=== PATIENT | female | born 1995 | race Hispanic/Latino ===

== ENCOUNTER 2024-07-28 17:48 | Emergency (ER) | payer OTHER, SELFPAY ==
--- NOTE | 2024-07-28 19:09 | RAD REPORT ---
EXAM: Transvaginal OB HISTORY: Abd cramping, ;Vaginal bleeding COMPARISON: None TECHNIQUE: Multiple grayscale and color Doppler images were obtained in a transvaginal pelvic ultraso und. Spectral analysis of the Doppler waveforms of the ovaries were performed. FINDINGS: UTERUS: No IUP identified. Endometrial echo complex measures 13 mm. No free fluid is seen in the pelvis. RIGHT OVARY: Normal flow without focal mass. LEFT OVARY: Normal flow without focal mass. IMPRESSION: No IUP identified. Per the clinical history, the patient had a recent ultrasound with enrique pected gestational sac. This could represent failed first trimester . Correlate with beta hCG.
[2024-07-28 19:11] LABS: Specific Gravity 1.029 (1.005-1.030); Sqamous Epithelial <5 /HPF (None Seen); Urine Bacteria None Seen /HPF (<20); Urine Bilirubin NEGATIVE (Negative); Urine Blood 3+ (OVER) (Negative); Urine Clarity Extremely Turbid (Clear); Urine Color Light-Orange (Yellow); Urine Culture Reflex Order NOT NEEDED; Urine Glucose 4+ (Over) (Negative); Urine Ketones TRACE (Negative); Urine Microscopic Reflex YN ORDER UMIC; Urine Nitrite NEGATIVE (Negative); Urine Protein TRACE (Negative); Urine RBC >50 /HPF (None Seen); Urine Urobilinogen Normal (Normal); Urine WBC None Seen /HPF (<5); Urine pH 5.5 (5.0-7.0)
[2024-07-28 19:20] LABS: Absolute Eosinophils 0.1 K/uL (0-0.5); Absolute Monocytes 0.5 K/uL (0.1-1.3); Basophils % 0.5 % (0-1.3); Eosinophils % 0.9 % (0-4.4); Hematocrit 41.2 % (36.0-45.0); Hemoglobin 13.7 g/dL (12.0-15.0); Lymphocytes % 34.9 % (15.3-44.8); MCH 29.2 pg (27.0-35.0); MCHC 33.3 g/dL (32.0-36.0); MCV 87.8 fL (80-100); MPV 7.9 fL (7.6-11.3); Monocytes % 6.1 % (3.3-12.3); Neutrophils % 57.6 % (41.7-73.7); Platelets 262 thou/uL (152-406); RBC Red Blood Cell Count 4.69 M/uL (3.86-4.86); Red Cell Distribution Width 14.2 % (12.1-15.2)
[2024-07-28 19:52] LABS: Anion Gap 9.7 mEq/L (5.0-15.0); Potassium 3.7 mEq/L (3.5-5.1)
--- NOTE | 2024-07-28 20:13 | EDPHYS ---
Physician Documentation [facility] Name: Kalia Patel Age: 28 yrs Sex: Female : 1995 Arrival Date: 07/28/2024 Time: 17:48 Bed 7 Private MD: TAMY Physician Saul Hall HPI: 07/28 18:53 This 28 yrs old Female presents to ER via Ambulatory with complaints of eliza Vaginal Bleeding, + Preg <12wks. 18:53 The patient presents to the emergency department with vaginal bleeding, that is light, eliza that is moderate. The estimated gestational age is 10 weeks. course: care: at a clinic. Previous pregnancies: in previous pregnancies patient has had vaginal delivery. Associated signs and symptoms: The patient has no apparent associated signs or symptoms. The patient has not experienced similar symptoms in the past. 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 - Infectious Disease History:: Denies. - Social history:: Smoking status: Patient denies any tobacco usage or history of. ROS: 18:54 Constitutional: Negative for fever, chills, and weight loss, Eyes: Negative for injury, eliza pain, redness, and discharge, ENT: Negative for injury, pain, and discharge, Neck: Negative for injury, pain, and swelling, Cardiovascular: Negative for chest pain, palpitations, and edema, Respiratory: Negative for shortness of breath, cough, wheezing, and pleuritic chest pain, Abdomen/GI: Negative for abdominal pain, nausea, vomiting, diarrhea, and constipation, Back: Negative for injury and pain, MS/Extremity: Negative for injury and deformity, Skin: Negative for injury, rash, and discoloration, Neuro: Negative for headache, weakness, numbness, tingling, and seizure, Psych: Negative for depression, anxiety, suicide ideation, homicidal ideation, and hallucinations, Allergy/Immunology: Negative for hives, rash, and allergies, Endocrine: Negative for neck swelling, polydipsia, polyuria, polyphagia, and marked weight changes, Hematologic/Lymphatic: Negative for swollen nodes, abnormal bleeding, and unusual bruising, 18:54 : Positive for vaginal bleeding, Exam: 18:54 Constitutional: This is a well developed, well nourished patient who is awake, alert, eliza and in no acute distress. Head/Face: Normocephalic, atraumatic. Eyes: Pupils equal round and reactive to light, extra-ocular motions intact. Lids and lashes normal. Conjunctiva and sclera are non-icteric and not injected. Cornea within normal limits. Periorbital areas with no swelling, redness, or edema. ENT: Nares patent. No nasal discharge, no septal abnormalities noted. Tympanic membranes are normal and external auditory canals are clear. Oropharynx with no redness, swelling, or masses, exudates, or evidence of obstruction, uvula midline. Mucous membranes moist. Neck: Trachea midline, no thyromegaly or masses palpated, and no cervical lymphadenopathy. Supple, full range of motion without nuchal rigidity, or vertebral point tenderness. No Meningismus. Chest/axilla: Normal chest wall appearance and motion. Nontender with no deformity. No lesions are appreciated. Cardiovascular: Regular rate and rhythm with a normal S1 and S2. No gallops, murmurs, or rubs. Normal PMI, no JVD. No pulse deficits. Respiratory: Lungs have equal breath sounds bilaterally, clear to auscultation and percussion. No rales, rhonchi or wheezes noted. No increased work of breathing, no retractions or nasal flaring. Abdomen/GI: Soft, non-tender, with normal bowel sounds. No distension or tympany. No guarding or rebound. No evidence of tenderness throughout. Back: No spinal tenderness. No costovertebral tenderness. Full range of motion. Skin: Warm, dry with normal turgor. Normal color with no rashes, no lesions, and no evidence of cellulitis. MS/ Extremity: Pulses equal, no cyanosis. Neurovascular intact. Full, normal range of motion., bilateral aka Neuro: Awake and alert, GCS 15, oriented to person, place, time, and situation. Cranial nerves II-XII grossly intact. Motor strength 5/5 in all extremities. Sensory grossly intact. Cerebellar exam normal. Normal gait. Psych: Awake, alert, with orientation to person, place and time. Behavior, mood, and affect are within normal limits. Vital Signs: 17:57 BP 142 / 106; Pulse 90; Resp 16; Temp 98.3; Pulse Ox 100% on R/A; hb 19:30 BP 145 / 87; Pulse 87; Resp 16; Pulse Ox 99% on R/A; dd2 20:30 BP 137 / 84; Pulse 84; Resp 16; Pulse Ox 100% on R/A; dd2 21:10 BP 136 / 85; Pulse 84; Resp 16; Temp 98.3; Pulse Ox 100% ; dd2 [place] Coma Score: 19:35 Eye Response: spontaneous(4). Motor Response: obeys commands(6). Verbal Response: dd2 oriented(5). Total: 15. MDM: 17:55 Medical Screening Exam initiated eliza 18:55 Differential diagnosis: ectopic , menometrorrhagia, menorrhea, threatened Ab, eliza inevitable Ab, complete Ab, retained Ab, septic Ab, missed Ab, Data reviewed: vital signs, nurses notes, lab test result(s), radiologic studies, ultrasound. Consideration of Admission/Observation Escalation of care including admission/observation considered. I considered the following discharge prescriptions or medication management in the emergency department Medications were administered in the Emergency Department. See MAR. Independent interpretation of the following test(s) in the Emergency Department Radiology Department Ultrasound: My interpretation is NO IUP. Test considered but Not performed: X-ray: NO X RAYS. Historians other than the Patient: Spouse/Significant Other: SIGNIFICANT OTHER. Care significantly affected by the following chronic conditions: Diabetes, Obesity, PCOS, DM 2. Counseling: I had a detailed discussion with the patient and/or guardian regarding the historical points, exam findings, and any diagnostic results supporting the discharge/admit diagnosis, lab results, radiology results, the need for outpatient follow up, for definitive care, an OB/Gyne specialist. 20:10 ED course: Vital signs stable. Patient reports vaginal bleeding has slowed down and she cp pulls up report on her phone showing that she had an ultrasound done 2 days ago that showed an IUP. Today's ultrasound is negative for IUP and according to patient the beta-hCG level is lower today than it was 2 days ago. Will discharge to home for continued monitoring patient can follow-up with her primary OB. 07/28 17:55 Order name: Abo/rh Typing; Complete Time: 20:01 [facility] 07/28 20:01 Interpretation: Reviewed. cp 07/28 17:55 Order name: Basic Metabolic Panel; Complete Time: 20:01 [facility] 07/28 20:01 Interpretation: Normal except: NA 135; GLUC 266. cp 07/28 17:55 Order name: CBC with Diff; Complete Time: 20:01 [facility] 07/28 20:01 Interpretation: Reviewed. cp 07/28 17:55 Order name: Test, Urine; Complete Time: 19:15 [facility] 07/28 20:02 Interpretation: Reviewed. cp 07/28 17:55 Order name: Quantitative Hcg; Complete Time: 20:01 [facility] 07/28 20:01 Interpretation: Reviewed. cp 07/28 17:55 Order name: Urinalysis w/ reflexes; Complete Time: 19:15 [facility] 07/28 20:02 Interpretation: Normal except: [facility] Extremely Turbid; UGLUC 4+ (Over); UKET TRACE; UBLD cp 3+ (OVER); UPROT TRACE; URBC >50. 07/28 17:55 Order name: US Transvaginal Ob; Complete Time: 19:15 [facility] 07/28 17:55 Order name: IV Saline Lock; Complete Time: 19:16 [facility] 07/28 17:55 Order name: Labs collected and sent; Complete Time: 19:16 [facility] 07/28 17:55 Order name: NPO; Complete Time: 18:15 [facility] Administered Medications: 19:15 Drug: NS 0.9% IV 1000 ml IV at 1000 ml once; to be given as a bolus over 60 minutes dd2 Route: IV; Rate: 1000 ml; Site: right antecubital; 19:30 Follow up: Response: No adverse reaction dd2 20:15 Follow up: IV Status: Completed infusion; IV Intake: 1000ml dd2 Disposition Summary: 07/28/24 20:12 Discharge Ordered Notes: Location: Home cp Problem: new cp Symptoms: have improved cp Condition: Stable cp Diagnosis - Complete or unspecified spontaneous without complication cp - Diabetes mellitus due to underlying condition with hyperglycemia cp Followup: eliza - With: Private Physician - When: 2 - 3 days - Reason: Recheck today's complaints, Continuance of care, Re-evaluation by your physician Discharge Instructions: - Discharge Summary Sheet eliza - Care eliza - Vaginal Bleeding During , First Trimester eliza - Hyperglycemia cp - Miscarriage cp - Daily Diabetes Mellitus Record cp - Blood Glucose Monitoring, Adult cp - Diabetes Mellitus and Nutrition, Adult cp - Managing Loss cp Forms: - Medication Reconciliation Form cp - Antibiotic Education cp - Prescription Opioid Use cp - Patient Portal Instructions cp - Leadership Thank You Letter cp Addendum: 07/30/2024 14:58 Co-signature as Attending Physician, Saul Hall MD I agree with the assessment and c soria plan of care. Signatures: Dispatcher [employer] EDMS Saul Hall MD MD cha Page, Corey, PA PA cp Angie Gruber, SUSAN RN TIFFANY Camejo RN RN dd2 Corrections: (The following items were deleted from the chart) 07/28 17:56 17:56 ABO/RH TYPING+BB.LAB.BRZ ordered. EDMS EDMS 17:56 17:56 BASIC METABOLIC PANEL+C.LAB.BRZ ordered. EDMS EDMS 17:56 17:56 CBC+H.LAB.BRZ ordered. EDMS EDMS 17:56 17:56 Test, Urine+UC.LAB.BRZ ordered. EDMS EDMS 17:56 17:56 QUANTITATIVE HCG+C.LAB.BRZ ordered. EDMS EDMS 17:56 17:56 Urinalysis+U.LAB.BRZ ordered. EDMS EDMS
--- NOTE | 2024-07-28 20:13 | ER ---
Nurse's Notes [facility] Name: Kalia Patel Age: 28 yrs Sex: Female : 1995 Arrival Date: 07/28/2024 Time: 17:48 Bed 7 Private MD: Diagnosis: Complete or unspecified spontaneous without complication;Diabetes mellitus due to underlying condition with hyperglycemia Presentation: 07/28 17:57 Chief complaint: Seen [facility] 2 days ago for subchorionic hemorrhage and hb instructed to return to ED if bleeding worsens, noticed increase in bleeding yesterday. LMP 10, FAHAD 02/22. Coronavirus screen: At this time, the client does not indicate any symptoms associated with coronavirus-19. Ebola Screen: No symptoms or risks identified at this time. Initial Sepsis Screen: Does the patient meet any 2 criteria? No. Patient's initial sepsis screen is negative. Does the patient have a suspected source of infection? No. Patient's initial sepsis screen is negative. Risk Assessment: Do you want to hurt yourself or someone else? Patient reports no desire to harm self or others. Onset of symptoms was July 23, 2024. 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 - Infectious Disease History:: Denies. - Social history:: Smoking status: Patient denies any tobacco usage or history of. Screenin:35 [facility] ED Fall Risk Assessment (Adult) History of falling in the last 3 months, dd2 including since admission No falls in past 3 months (0 pts) Confusion or Disorientation No (0 pts) Intoxicated or Sedated No (0 pts) Impaired Gait No (0 pts) Mobility Assist Device Used No (0 pt) Altered Elimination No (0 pt) Score/Fall Risk Level 0 - 2 = Low Risk Oriented to surroundings, Maintained a safe environment, Educated pt \T\ family on fall prevention, incl call for assistance when getting out of bed, Assessed \T\ reinforced patient's understanding of fall precautions, Hourly rounding (assess needs \T\ fall precautionary measures) done. Abuse screen: Denies threats or abuse. Nutritional screening: No deficits noted. Tuberculosis screening: No symptoms or risk factors identified. Assessment: 19:35 Obstetrical Assessment: General assessment: awake and alert, skin warm and dry, dd2 respirations even and unlabored. General: Appears in no apparent distress. Behavior is calm, cooperative, appropriate for age. Pain: Denies pain. Neuro: No deficits noted. [place] Agitation-Sedation Scale (RASS): 0 - Alert and Calm Level of Consciousness is awake, alert, obeys commands, Oriented to person, place, time, situation. Cardiovascular: Patient's skin is warm and dry. Respiratory: No deficits noted. Airway is patent Respiratory effort is even, unlabored, Respiratory pattern is regular, symmetrical. GI: No deficits noted. No signs and/or symptoms were reported involving the gastrointestinal system. : Reports vaginal bleeding that is spotty. EENT: No deficits noted. No signs and/or symptoms were reported regarding the EENT system. Derm: Skin is healthy with good turgor, Skin is dry, Skin temperature is warm. Musculoskeletal: No deficits noted. No signs and/or symptoms reported regarding the musculoskeletal system. Circulation, motion, and sensation intact. Range of motion: intact in all extremities. Vital Signs: 17:57 BP 142 / 106; Pulse 90; Resp 16; Temp 98.3; Pulse Ox 100% on R/A; hb 19:30 BP 145 / 87; Pulse 87; Resp 16; Pulse Ox 99% on R/A; dd2 20:30 BP 137 / 84; Pulse 84; Resp 16; Pulse Ox 100% on R/A; dd2 21:10 BP 136 / 85; Pulse 84; Resp 16; Temp 98.3; Pulse Ox 100% ; dd2 [place] Coma Score: 19:35 Eye Response: spontaneous(4). Motor Response: obeys commands(6). Verbal Response: dd2 oriented(5). Total: 15. ED Course: 17:52 Patient arrived in ED. im 17:55 Saul Hall MD is Attending Physician. eliza 18:00 Triage completed. hb 18:02 Arm band placed on. hb 18:03 Brian Sandy, RN is Primary Nurse. bp 18:58 US Transvaginal Ob In Process Unspecified. EDMS 18:59 Urinalysis w/ reflexes Sent. ll1 18:59 Test, Urine Sent. ll1 19:16 Abo/rh Typing Sent. dd2 19:16 Basic Metabolic Panel Sent. dd2 19:16 CBC with Diff Sent. dd2 19:16 Quantitative Hcg Sent. dd2 19:16 No provider procedures requiring assistance completed. Initial lab(s) drawn, by me, dd2 sent to lab. Inserted saline lock: 20 gauge in right antecubital area, using aseptic technique. Blood collected. Flushed with 10 mL NS. 19:27 Saul Redmond PA is PHCP. cp 19:35 Patient has correct armband on for positive identification. Placed in gown. Bed in low dd2 position. Call light in reach. Side rails up X2. Client placed on continuous cardiac and pulse oximetry monitoring. NIBP monitoring applied. Door closed. Noise minimized. Warm blanket given. Pillow given. Verbal reassurance given. 21:05 IV discontinued, intact, bleeding controlled, No redness/swelling at site. Pressure vk dressing applied. 21:22 Provided Education on: D/C EDUCATION. dd2 Administered Medications: 19:15 Drug: NS 0.9% IV 1000 ml IV at 1000 ml once; to be given as a bolus over 60 minutes dd2 Route: IV; Rate: 1000 ml; Site: right antecubital; 19:30 Follow up: Response: No adverse reaction dd2 20:15 Follow up: IV Status: Completed infusion; IV Intake: 1000ml dd2 Medication: 19:35 VIS not applicable for this client. dd2 Intake: 20:15 IV: 1000ml; Total: 1000ml. dd2 Outcome: 20:12 Discharge ordered by . cp 21:17 Discharged to home ambulatory, dd2 21:17 Condition: stable 21:17 Discharge instructions given to patient, significant other, Instructed on discharge instructions, follow up and referral plans. Demonstrated understanding of instructions, follow-up care, 21:22 Patient left the ED. dd2 Signatures: Dispatcher [employer] Saul Luna MD MD cha Page, Corey, PA PA cp Baxter, Heather, RN RN hb Peltier, Brian, RN RN bp Pricilla Rivera RN RN ll1 Lety Arevalo Vivian vk DAVIS, DIANA RN RN dd2
[2024-07-28 22:22] VITALS: BP 142/106; TEMP 98.3; O2SAT 100
== END 2024-07-28 21:22 | disposition home or self-care (01) ==
LOC: ER 17:48
DX: O03.9 Complete or unspecified spontaneous abortion without complication (principal); E11.65 Type 2 diabetes mellitus with hyperglycemia
CPT/HCPCS: 36415; 76817; 80048; 81001; 81025; 84702; 85025; 86900; 86901; 96360; 99284